=== PATIENT | male | born 1960 ===

== ENCOUNTER 2021-07-07 08:14 | Outpatient (CLI) | payer BC | END 2021-07-07 08:15 | disposition home or self-care (01) | LOC: CSHULT 08:14 | PROVIDERS: ATTEND Internal Medicine | DX: R10.11 Right upper quadrant pain (principal); K76.0 Fatty (change of) liver, not elsewhere classified; K80.20 Calculus of gallbladder without cholecystitis without obstruction | CPT/HCPCS: 76705 ==